=== PATIENT | male | born 1960 | race Caucasian/White ===

== ENCOUNTER 2017-07-25 22:37 | Emergency (ER) | payer OTHER ==
[2017-07-25 23:28] VITALS: BP 130/66
--- NOTE | 2017-07-26 00:15 | RADIOLOGY REPORT (SQ) ---
EXAM DESCRIPTION: HAND LEFT 3 VIEWS COMPLETED DATE/TIME: 07/25/2017 11:51 pm REASON FOR STUDY: thumb crush injury COMPARISON: None. EXAM PARAMETERS: NUMBER OF VIEWS: Three views. TECHNIQUE: AP, lateral and oblique radiographic images acquired of the left hand. LIMITATIONS: None. FINDINGS: MINERALIZATION: Normal. BONES: Comminuted intra-articular fracture at the base of the right 1st proximal phalanx with up to 0 .5 cm displacement/distraction. No evidence of healing. 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 0.4 cm ossicular fragment of the ulnocarpal joint. JOINTS: No effusions. SOFT TISSUES: No soft tissue swelling. No foreign body. OTHER: No other significant finding. IMPRESSION: Comminuted fracture of the right 1st proximal phalanx. TECHNICAL DOCUMENTATION: JOB ID: [id number] [employer]- All Rights Reserved
[2017-07-26] MEDS ORDERED: ONDANSETRON 4 MG TAB.RAPDIS PO ONE (00:31)
[2017-07-26] MEDS ORDERED: OXYCODONE-ACETAMINOPHEN 5-325 MG TABLET PO ONE (00:31)
--- NOTE | 2017-07-26 00:50 | ER Document Report ---
HPI - HPI Patient complains to provider of: right thumb injury Pain Level: 3 Context: Patient is a 56-year-old male comes emergency department for chief complaint of injury to his right hand and thumb. He states that he will had a house dmitriy fall and it landed on his hand causing immediate swelling and pain. He denies any other injuries. He does not take any daily medications. He is up-to-date on his tetanus within 5 years. Past Medical History - General Information source: Patient - Social History Smoking Status: Never Smoker Frequency of alcohol use: None Drug Abuse: None Lives with: Family Family History: Reviewed & Not Pertinent Patient has suicidal ideation: No Patient has homicidal ideation: No - Medical History Medical History: Negative Renal/ Medical History: Denies: Hx Peritoneal Dialysis Past Surgical History: Reports: Hx Orthopedic Surgery - left hip replacement - Immunizations Hx Diphtheria, Pertussis, Tetanus Vaccination: Yes - 2009 Vertical Provider Document - CONSTITUTIONAL General Appearance: WD/WN, Mild Distress - Patient appears to be in some pain, holding his right hand close to his body - INFECTION CONTROL TRAVEL OUTSIDE OF THE [place] IN LAST 30 DAYS: No - HEENT HEENT: Atraumatic, Normocephalic - NECK Neck: Normal Inspection - RESPIRATORY Respiratory: Breath Sounds Normal, No Respiratory Distress O2 Sat by Pulse Oximetry: 96 - CARDIOVASCULAR Cardiovascular: Regular Rate, Regular Rhythm - GI/ABDOMEN Gastrointestinal: Abdomen Soft, Abdomen Non-Tender - BACK Back: Normal Inspection - MUSCULOSKELETAL/EXTREMETIES Musculoskeletal/Extremeties: Tender - Tenderness or swelling at the base of the right thumb, snuffbox is unremarkable, he actually can still move his thumb in normal range of motion, capillary refill and sensation intact, remaining hand, wrist, forearm exam is normal. No open wounds. - NEURO Level of Consciousness: Awake, Alert, Appropriate - DERM Integumentary: Warm, Dry, No Rash Course - Re-evaluation Re-evalutation: X-ray imaging showing comminuted fracture of the proximal first phalanx, neurovascular exam is intact, no other concerns of injury noted. Discussed with Dr. Sebastian. Patient will be placed in a thumb spica, provided with pain medication, patient referred to orthopedics, patient states that he will call tomorrow and follow-up closely. Discussed return precautions. Patient states understanding and agreement. - Vital Signs Vital signs: Temp Pulse Resp BP Pulse Ox 99.3 F 100 18 130/66 H 96 07/25/17 23:26 07/25/17 23:26 07/25/17 23:26 07/25/17 23:26 07/25/17 23:26 Procedures - Immobilization Right thumb Pre-Proc Neuro Vasc Exam: Normal Immobilizer type: Thumb spica Performed by: PCT Post-Proc Neuro Vasc Exam: Normal Alignment checked and good: Yes Discharge - Discharge Clinical Impression: Hand crush injury Qualifiers: Encounter type: initial encounter Laterality: right Qualified Code(s): S67.21XA - Crushing injury of right hand, initial encounter Thumb fracture Qualifiers: Encounter type: initial encounter Fracture type: closed Phalanx: proximal Fracture alignment: nondisplaced Laterality: right Qualified Code(s): S62.514A - Nondisplaced fracture of proximal phalanx of right thumb, initial encounter for closed fracture Condition: Stable Disposition: HOME, SELF-CARE Additional Instructions: There is a comminuted (complex) fracture in your right thumb. Please wear the splint, call on Thursday, call Dr. Escoto, see the referral, please perform this follow-up because he will likely need surgical repair for your thumb. Take the pain medication if needed, take the stool softener if you do to avoid constipation. Return to the emergency department for any concerning or worsening symptoms including severe pain or swelling. Prescriptions: Morphine Sulfate [Morphine Ir 15 Mg Tablet] 15 mg PO Q4HP PRN #15 tablet PRN Reason: Docusate Sodium [Colace 100 mg Capsule] 100 mg PO ASDIR PRN #30 capsule PRN Reason: Referrals: DUNG ESCOTO DO [ACTIVE STAFF] - 07/27/17
== END 2017-07-26 01:58 | disposition home or self-care (01) ==
LOC: ER 22:37
DX: S67.21XA Crushing injury of right hand, initial encounter (principal); S62.514A Nondisplaced fracture of proximal phalanx of right thumb, initial encounter for closed fracture; W20.8XXA Other cause of strike by thrown, projected or falling object, initial encounter
CPT/HCPCS: 99283; 73130; 29125; S0119

== ENCOUNTER 2017-07-31 10:51 | Day surgery (SDC) | payer OTHER ==
[~2017-07-31 10:51] MED LIST: KETOROLAC TROMETHAMINE 60 MG/2 ML SDV ONE; VANCOMYCIN HCL 1,000 MG in DEXTROSE 5%-WATER 250 ML IV PRN
--- NOTE | 2017-07-31 11:19 | EKG REPORT ---
SEVERITY:- NORMAL ECG - SINUS RHYTHM : Confirmed by: Lopez Waggoner 31-Jul-2017 11:19:26
[2017-07-31 11:42] LABS: HEMATOCRIT 40.8 % (37.9-51.0); HEMOGLOBIN 14.1 g/dL (13.5-17.0); HGB HCT DIFFERENCE 1.5; MEAN CORPUSCULAR HEMOGLOBIN 30.7 pg (27.0-33.4); MEAN CORPUSCULAR HGB CONC 34.4 g/dL (32.0-36.0); MEAN CORPUSCULAR VOLUME 89 fl (80-97); RED BLOOD COUNT 4.58 10^6/uL (4.35-5.55); RED CELL DISTRIBUTION WIDTH 13.4 % (11.5-14.0); WHITE BLOOD COUNT 8.8 10^3/uL (4.0-10.5)
[2017-07-31 11:48] LABS: APPEARANCE,URINE CLEAR; BILIRUBIN,URINE NEGATIVE (NEGATIVE); GLUCOSE, URINE NEGATIVE (NEGATIVE); KETONES,URINE NEGATIVE (NEGATIVE); LEUKOCYTE ESTERASE,URINE NEGATIVE (NEGATIVE); NITRITE,URINE NEGATIVE (NEGATIVE); PROTEIN,URINE NEGATIVE (NEGATIVE); URINE SPECIFIC GRAVITY 1.026; UROBILINOGEN,URINE NEGATIVE mg/dL (<2.0)
[2017-07-31 11:55] LABS: ANION GAP 14 (5-19); BLOOD UREA NITROGEN 18 mg/dL (7-20); CALCIUM 9.4 mg/dL (8.4-10.2); CARBON DIOXIDE 23 mmol/L (22-30); CHLORIDE 106 mmol/L (98-107); CREATININE RESULT 0.84 mg/dL (0.52-1.25); GLUCOSE 101 mg/dL (75-110); POTASSIUM 4.5 mmol/L (3.6-5.0); SODIUM 142.9 mmol/L (137-145)
--- NOTE | 2017-07-31 12:08 | RADIOLOGY REPORT (SQ) ---
EXAM DESCRIPTION: CHEST SINGLE VIEW COMPLETED DATE/TIME: 07/31/2017 11:19 am REASON FOR STUDY: PREOP COMPARISON: None. EXAM PARAMETERS: NUMBER OF VIEWS: One view. TECHNIQUE: Single frontal radiographic view of the chest acquired. RADIATION DOSE: NA LIMITATIONS: None. FINDINGS: LUNGS AND PLEURA: No opacities, masses or pneumothorax. No pleural effusion. MEDIASTINUM AND HILAR STRUCTURES: No masses. Contour normal. HEART AND VASCULAR STRUCTURES: Heart normal in size. Normal vasculature. BONES: No acute findings. HARDWARE: None in the chest. OTHER: No other significant finding. IMPRESSION: NO ACUTE RADIOGRAPHIC FINDING IN THE CHEST. TECHNICAL DOCUMENTATION: JOB ID: [id number] [employer]- All Rights Reserved
[2017-07-31] MEDS ORDERED: MIDAZOLAM 2 MG/2 ML INJ ONE (12:22)
[2017-07-31] MEDS ORDERED: FENTANYL CITRATE INJ/PF 100 MCG/2 ML AMPUL ONE ×2 (12:22)
[2017-07-31] MEDS ORDERED: ACETAMINOPHEN 100 ML IV ONE (12:22)
[2017-07-31] MEDS ORDERED: PROPOFOL INJ 200 MG/20 ML VIAL IV ONE (12:22)
[2017-07-31] MEDS ORDERED: BUPIVACAINE HCL 0.5 % INJ/PF 30 ML SDV ONE (12:39)
[2017-07-31] MEDS ORDERED: HYDROMORPHONE HCL INJ/PF 2 MG/ML AMPULE ONE ×2 (14:39→14:41)
[2017-07-31] MEDS ORDERED: ONDANSETRON HCL INJ/PF 4 MG/2 ML SDV IV PRN (15:05)
[2017-07-31] MEDS ORDERED: HYDROMORPHONE HCL INJ/PF 2 MG/ML AMPULE IV PRN (15:05)
[2017-07-31] MEDS ORDERED: OXYCODONE-ACETAMINOPHEN 5-325 MG TABLET PO PRN (15:05)
--- NOTE | 2017-07-31 15:11 | Operative Report ---
Operative Report DATE OF SURGERY: 07/31/17 PREOPERATIVE DIAGNOSIS: Right Comminuted Intra-articular Proximal Phalanx Fracture POSTOPERATIVE DIAGNOSIS: Same OPERATION: ORIF Right Intra-articular Proximal Phalanx Fracture SURGEON: DUNG ESCOTO ANESTHESIA: GA COMPLICATIONS: None ESTIMATED BLOOD LOSS: Minimal PROCEDURE: Indication for above procedure: 56-year-old male who sustained a crush injury to his right thumb. Patient was seen at the emergency room where x-rays demonstrated comminuted fracture. He subsequently followed up at my office at which point we discussed treatment options including conservative management versus operative intervention. Risks and benefits were explained patient verbalized understanding and consented to proceed with operative treatment. Procedure In Detail: Patient was seen and evaluated in the preoperative holding area. The RIGHT upper extremity was initialized and marked. Patient received 2g of Ancef IV for bacterial prophylaxis. Patient was taken back to the operative room where transferred to the operative table and placed under general anesthesia. Once they were adequately anesthetized a nonsterile tourniquet was placed on the upper extremity. A surgical team debriefing was performed ensuring all instrumentation was available, the surgical procedure was discussed with possible concerns reviewed. The upper extremity was prepped with chlorhexidine and alcohol and draped in a sterile fashion. A timeout was done identifying correct patient, procedure and extremity everyone in attendance agree with this and verbalized no concerns. The extremity was exsanguinated the tourniquet was inflated to 250 mmHg. Longitudinal skin incision was made centered over the proximal phalanx of the thumb. Blunt dissection was performed and a small veins were identified and coagulated with bipolar cautery. Branches of the radial nerve were identified and retracted. The EPB and EPL tendons were identified and split midline. There was carefully retracted and the underlying periosteum and capsule of the MP joint was split in line with the skin incision and carefully elevated from the bone to allow for later repair. There is significant comminution of the intra-articular surface. The joint was copiously irrigated with normal saline and any intervening hematoma removed. Under direct visualization the 3 main articular fragments were reduced without evidence of diastases or step-off and then held together with 0.035 and a 0.045 K wire. C-arm fluoroscopy was obtained which confirmed acceptable reduction. I then shows a 2.3 mm [place] mini fragmentary plate this was pinned into position C arm was obtained confirming appropriate placement of the plate. I then placed a bicortical screw perpendicular to the articular fragments which provided interfragmentary compression. I then further fixated the plate with an additional 2 screws radially and ulnarly and the T plate with locking screws. C arm fluoroscopy confirmed acceptable reduction of the articular surface I then reduced the articular fragments to the main shaft fragment this was held with a KR and C arm obtained confirming acceptable reduction. I then obtained fixation with 2 bicortical screws restoring coronal and axial alignment of the phalanx. Finally a third oblique screw was aimed towards the articular surface to add additional fixation. C-arm fluoroscopy was obtained confirming acceptable reduction of the articular surface and baptism of sagittal and coronal alignment. There was no evidence of crepitus with MP joint range of motion. The wound was then irrigated with normal saline. The periosteum and capsule was reapproximated with interrupted 4-0 Monocryl suture. The extensor mechanism was closed with interrupted 3-0 Vicryl suture. The tourniquet was then deflated and compression held. Any remaining superficial veins were coagulated with bipolar cautery until the wound was dry. Skin was closed with interrupted 4-0 nylon suture. 20 cc of 0.5% Marcaine without epinephrine was injected for postoperative pain control. Patient was placed in a thumb spica plaster splint Sponge counts, instrument counts, needle counts counts were correct. Patient was then awoken from anesthesia. Transferred from the operating room table to the operating room stretcher. There was no intraoperative complications patient tolerated procedure well stable to PACU. Postoperative plan: Patient will follow-up as scheduled in 2 weeks. Will obtain radiographs at that time. He will be fitted for a thumb spica cast at first follow-up appointment.
--- NOTE | 2017-07-31 15:12 | PDOC DISCHARGE SUMMARY ---
Discharge Summary (SDC) - Discharge Final Diagnosis: Right thumb intra-articular proximal phalanx fracture Date of Surgery: 07/31/17 Discharge Date: 07/31/17 Condition: Good Treatment or Instructions: Schedule Follow Up w/ Dr. Twan Meraz @ [facility] to be seen in 10-14 days or as scheduled [place]: [place]: [place]: Ice and elevate Keep splint clean/dry/intact. If your fingers become numb please unwrap the Mick wrap but leave the splint in place, if the sensation does not return within 30 minutes please return to the emergency department. May begin finger range of motion attempting to make full fist. Please use ibuprofen (Motrin or Advil) 600-800 mg every 8 hours as needed for pain or fever. You may also use acetaminophen (Tylenol) 1000 mg every 4-6 hours as needed for pain or fever. Please be aware that many medications contain acetaminophen, do not exceed a total of 1000 mg of acetaminophen every 6 hours. If ibuprofen and acetaminophen are not sufficient for your pain you may take the Percocet. Please be aware that the Percocet does contain Tylenol. Stool softener of choice when on pain medication. Prescriptions: Oxycodone HCl 5 mg PO Q8 #20 tablet Referrals: STEPHANIE LEI NP [Primary Care Provider] - Discharge Diet: As Tolerated Respiratory Treatments at Home: Deep Breathing/Coughing Report the Following to Your Physician Immediately: Fever over 101 Degrees, Unusual Bleeding, Redness, Swelling, Warmth
--- NOTE | 2017-07-31 16:00 | RADIOLOGY REPORT (SQ) ---
EXAM DESCRIPTION: NO CHG FLUORO COMPLETE DATE/TIME: 07/31/2017 2:59 pm REASON FOR STUDY: ORIF RT THUMB ASSISTED WITH FLUORO IN OR S62.512A DISP FX OF PROXIMAL PHALANX OF LEFT THUMB, INIT FOR FINDINGS: Please see combined report for performance of procedure and radiologic supervision and int erpretation. IMPRESSION: Please see combined report for performance of procedure and radiologic supervision and i nterpretation.
--- NOTE | 2017-07-31 16:00 | RADIOLOGY REPORT (SQ) ---
EXAM DESCRIPTION: FINGER RIGHT COMPLETED DATE/TIME: 07/31/2017 2:59 pm REASON FOR STUDY: ORIF RT THUMB ASSISTED WITH FLUORO IN OR S62.512A DISP FX OF PROXIMAL PHALANX OF LEFT THUMB, INIT FOR COMPARISON: None. FLUOROSCOPY TIME: 37 seconds 4 images saved to PACS. TECHNIQUE: Intra-operative images acquired during surgical procedure to evaluate progress. NUMBER OF IMAGES: For imaged LIMITATIONS: None. FINDINGS: Fluoroscopic images were obtained during internal fixation of the proximal phalanx of the left 1st digit. Orthopedic hardware is identified. Please refer to the surgeon's operative report f or additional information IMPRESSION: IMAGE(S) OBTAINED DURING PROCEDURE. COMMENT: Quality ID [id number]: Final reports for procedures using fluoroscopy that document radiation exp osure indices, or exposure time and number of fluorographic images (if radiation exposure indices are not available) Please consult full operative report of the attending physician for description of the procedure. TECHNICAL DOCUMENTATION: JOB ID: [id number] [employer]- All Rights Reserved
[2017-07-31 16:56] VITALS: BP 107/76
== END 2017-07-31 16:55 | disposition home or self-care (01) ==
LOC: OROUT 10:51
PROVIDERS: ATTEND Orthopaedic Surgery
PROC: 0PSR04Z Reposition Right Thumb Phalanx with Internal Fixation Device, Open Approach (ICD-10-PCS; principal; 2017-07-31 13:00)
DX: S62.512A Displaced fracture of proximal phalanx of left thumb, initial encounter for closed fracture (principal); W22.8XXA Striking against or struck by other objects, initial encounter; M79.644 Pain in right finger(s); F17.210 Nicotine dependence, cigarettes, uncomplicated; Z86.14 Personal history of Methicillin resistant Staphylococcus aureus infection
CPT/HCPCS: 36415; 85027; 80048; 81001; 71010; 73140; 93005; 93010; 26735; C1769; J2250; J1885; J3010; J1170; J7060; J2704; J3370; J0131; 01830

== ENCOUNTER 2018-07-18 18:38 | Emergency (ER) | payer OTHER ==
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
[2018-07-18 19:52] LABS: ABSOLUTE BASOPHILS # (AUTO) 0.1 10^3/uL (0.0-0.2); ABSOLUTE EOSINOPHILS # (AUTO) 0.2 10^3/uL (0.0-0.6); ABSOLUTE MONOCYTES (AUTO) 0.6 10^3/uL (0.1-1.4); ABSOLUTE NEUT (AUTO) 6.5 10^3/uL (1.7-8.2); BASOPHILS % (AUTO) 0.8 % (0-2); EOSINOPHILS % (AUTO) 1.6 % (0-6); HEMATOCRIT 42.8 % (37.9-51.0); HEMOGLOBIN 14.9 g/dL (13.5-17.0); MEAN CORPUSCULAR HEMOGLOBIN 30.3 pg (27.0-33.4); MEAN CORPUSCULAR HGB CONC 34.7 g/dL (32.0-36.0); MEAN CORPUSCULAR VOLUME 87 fl (80-97); MONOCYTES % (AUTO) 5.8 % (3-13); PLATELET COUNT 425 10^3/uL (150-450); RED BLOOD COUNT 4.91 10^6/uL (4.35-5.55); RED CELL DISTRIBUTION WIDTH 13.4 % (11.5-14.0); SEGMENTED NEUTROPHILS % (AUTO) 62.8 % (42-78); TOTAL CELLS COUNTED % (AUTO) 100 %; WHITE BLOOD COUNT 10.3 10^3/uL (4.0-10.5)
--- NOTE | 2018-07-18 19:57 | RADIOLOGY REPORT (SQ) ---
EXAM DESCRIPTION: KNEE LEFT 4 VIEW COMPLETED DATE/TIME: 07/18/2018 7:47 pm REASON FOR STUDY: severe pain in left knee sudden COMPARISON: None. NUMBER OF VIEWS: Four views. TECHNIQUE: AP, lateral, and both oblique radiographic images acquired of the left knee. LIMITATIONS: None. FINDINGS: MINERALIZATION: Normal. BONES: No acute fracture or dislocation. No worrisome bone lesions. JOINT: No effusion. SOFT TISSUES: No soft tissue swelling. No radio-opaque foreign body. IMPRESSION: No radiographic evidence of acute injury at the left knee. TECHNICAL DOCUMENTATION: JOB ID: [id number] [employer]- All Rights Reserved Reading location - IP/workstation name: [email or web address]
[2018-07-18 20:04] LABS: ANION GAP 16 (5-19); BLOOD UREA NITROGEN 24 mg/dL (7-20); CALCIUM 10.2 mg/dL (8.4-10.2); CARBON DIOXIDE 23 mmol/L (22-30); CHLORIDE 103 mmol/L (98-107); GLUCOSE 100 mg/dL (75-110); POTASSIUM 3.8 mmol/L (3.6-5.0); SODIUM 142.4 mmol/L (137-145)
[2018-07-18] MEDS ORDERED: MORPHINE SULFATE 10 MG/ML INJ IV ONE (20:26)
--- NOTE | 2018-07-18 21:22 | RADIOLOGY REPORT (SQ) ---
CT LOWER EXTREMITY ANGIOGRAPHY WITH IV CONTRAST HISTORY: Sudden sharp and shooting left knee pain. COMPARISON: None. TECHNIQUE: CT angiogram of the left lower extremity. Sagittal and coronal MIPS reconstructions were obtained postprocessing. This exam was performed according to our departmental dose-optimization program, which includes automated exposure control, adjustment of the mA and/or kV according to patient size and/or use of iterative reconstruction technique. FINDINGS: Atherosclerotic calcifications and fibrofatty intraluminal plaque within the distal aorta, common left iliac, and left external iliac arteries. The common femoral, deep femoral, superficial femoral, popliteal, anterior tibial, posterior tibial, and peroneal arteries are patent without evidence of occlusion. Normal three-vessel runoff to the foot. No acute fracture or malalignment. Status post total left hip arthroplasty without periprosthetic fracture or hardware loosening. Surrounding muscles and tendons are intact. Visualized intrapelvic structures are unremarkable. IMPRESSION: 1. No evidence of occlusion or pseudoaneurysm of the left lower extremity vascular surgery. 2. No acute fracture or malalignment. 3. Status post total left hip arthroplasty with hardware intact.
[2018-07-18] MEDS ORDERED: HYDROCODONE/ACETAMINOPHEN 5-325 MG (6 TAB/ER DISP) PO PRN (21:36)
[2018-07-19 03:02] VITALS: BP 120/72
== END 2018-07-18 22:20 | disposition home or self-care (01) ==
LOC: ER 18:38
DX: M25.562 Pain in left knee (principal); Z96.642 Presence of left artificial hip joint; Z98.890 Other specified postprocedural states; F17.210 Nicotine dependence, cigarettes, uncomplicated; Z71.6 Tobacco abuse counseling
CPT/HCPCS: 99406; 99284; 96374; 36415; 85025; 80048; 73564; 73706; L1830; J2270

== ENCOUNTER 2019-01-12 08:34 | Day surgery (SDC) | payer OTHER ==
[2019-01-05 09:42] LABS: APPEARANCE,URINE CLEAR; BILIRUBIN,URINE NEGATIVE (NEGATIVE); COLOR,URINE STRAW; GLUCOSE, URINE NEGATIVE (NEGATIVE); KETONES,URINE NEGATIVE (NEGATIVE); LEUKOCYTE ESTERASE,URINE NEGATIVE (NEGATIVE); NITRITE,URINE NEGATIVE (NEGATIVE); PROTEIN,URINE NEGATIVE (NEGATIVE); URINE SPECIFIC GRAVITY 1.005; UROBILINOGEN,URINE NEGATIVE mg/dL (<2.0)
[2019-01-05 09:52] LABS: ABSOLUTE BASOPHILS # (AUTO) 0.1 10^3/uL (0.0-0.2); ABSOLUTE EOSINOPHILS # (AUTO) 0.4 10^3/uL (0.0-0.6); ABSOLUTE MONOCYTES (AUTO) 0.6 10^3/uL (0.1-1.4); ABSOLUTE NEUT (AUTO) 4.4 10^3/uL (1.7-8.2); BASOPHILS % (AUTO) 0.7 % (0-2); EOSINOPHILS % (AUTO) 5.8 % (0-6); HEMATOCRIT 42.8 % (37.9-51.0); HEMOGLOBIN 14.6 g/dL (13.5-17.0); LYMPHOCYTES % (AUTO) 26.9 % (13-45); MEAN CORPUSCULAR HEMOGLOBIN 30.6 pg (27.0-33.4); MEAN CORPUSCULAR HGB CONC 34.2 g/dL (32.0-36.0); MEAN CORPUSCULAR VOLUME 89 fl (80-97); MONOCYTES % (AUTO) 7.9 % (3-13); PLATELET COUNT 356 10^3/uL (150-450); RED BLOOD COUNT 4.78 10^6/uL (4.35-5.55); RED CELL DISTRIBUTION WIDTH 13.4 % (11.5-14.0); SEGMENTED NEUTROPHILS % (AUTO) 58.7 % (42-78); TOTAL CELLS COUNTED % (AUTO) 100 %; WHITE BLOOD COUNT 7.5 10^3/uL (4.0-10.5)
--- NOTE | 2019-01-05 10:02 | RADIOLOGY REPORT (SQ) ---
EXAM DESCRIPTION: CHEST PA/LATERAL COMPLETED DATE/TIME: 01/05/2019 9:37 am REASON FOR STUDY: PRE-OP COMPARISON: None. EXAM PARAMETERS: NUMBER OF VIEWS: two views TECHNIQUE: Digital Frontal and Lateral radiographic views of the chest acquired. RADIATION DOSE: NA LIMITATIONS: none FINDINGS: LUNGS AND PLEURA: No opacities, masses or pneumothorax. No pleural effusion. MEDIASTINUM AND HILAR STRUCTURES: No masses or contour abnormalities. HEART AND VASCULAR STRUCTURES: Heart normal size. No evidence for failure. BONES: No acute findings. HARDWARE: None in the chest. OTHER: No other significant finding. IMPRESSION: NO SIGNIFICANT RADIOGRAPHIC FINDING IN THE CHEST. TECHNICAL DOCUMENTATION: JOB ID: [id number] [employer]- All Rights Reserved Reading location - IP/workstation name: [email or web address]
[2019-01-05 10:12] LABS: ANION GAP 13 (5-19); BLOOD UREA NITROGEN 22 mg/dL (7-20); CALCIUM 9.9 mg/dL (8.4-10.2); CARBON DIOXIDE 28 mmol/L (22-30); CHLORIDE 101 mmol/L (98-107); GLUCOSE 109 mg/dL (75-110); POTASSIUM 4.6 mmol/L (3.6-5.0); SODIUM 141.9 mmol/L (137-145)
--- NOTE | 2019-01-05 14:31 | EKG REPORT ---
SEVERITY:- NORMAL ECG - SINUS RHYTHM : Confirmed by: Vinnie Power MD 05-Jan-2019 14:30:40
[~2019-01-12 08:34] MED LIST changes: +CEFAZOLIN 2 GM/D5W RTU 2 GM/50 ML RTUPB IV ONE; +CEFAZOLIN 2 GM/D5W RTU 2 GM/50 ML RTUPB IV PRN; -KETOROLAC TROMETHAMINE 60 MG/2 ML SDV ONE; +LACTATED RINGERS 1000 ML IV PRN; +LIDOCAINE 0.5% INJ-PF (5 MG/ML) 50 ML SDV SUBCUT PRN; -VANCOMYCIN HCL 1,000 MG in DEXTROSE 5%-WATER 250 ML IV PRN
[2019-01-12] MEDS ORDERED: FENTANYL CITRATE INJ/PF 100 MCG/2 ML AMPUL ONE (10:39)
[2019-01-12] MEDS ORDERED: PROPOFOL INJ 200 MG/20 ML VIAL IV ONE (10:39)
[2019-01-12] MEDS ORDERED: MIDAZOLAM 2 MG/2 ML INJ ONE (10:39)
[2019-01-12] MEDS ORDERED: LIDOCAINE 1%/EPINEPHRINE INJ 20 ML VIAL ONE (10:48)
[2019-01-12] MEDS ORDERED: BUPIVACAINE HCL 0.5 % INJ/PF 30 ML SDV ONE (10:48)
[2019-01-12] MEDS ORDERED: PROMETHAZINE HCL INJ 25 MG/1 ML VIAL IV PRN ×2 (11:16)
[2019-01-12] MEDS ORDERED: MEPERIDINE HCL/PF INJ 25 MG/1 ML DISP.SYRIN IV PRN (11:16)
[2019-01-12] MEDS ORDERED: DIPHENHYDRAMINE HCL 50 MG/ML VIAL IV PRN (11:16)
[2019-01-12] MEDS ORDERED: FENTANYL CITRATE INJ/PF 100 MCG/2 ML AMPUL IV PRN ×3 (11:16)
[2019-01-12] MEDS ORDERED: MORPHINE SULFATE 10 MG/ML INJ IV PRN (11:16)
[2019-01-12] MEDS ORDERED: OXYCODONE-ACETAMINOPHEN 5-325 MG TABLET PO PRN ×2 (11:16)
[2019-01-12] MEDS ORDERED: ONDANSETRON HCL INJ/PF 4 MG/2 ML SDV IV PRN (11:16)
--- NOTE | 2019-01-12 11:24 | Discharge Summary ---
Discharge Summary (SDC) - Discharge Final Diagnosis: Left medial meniscal tear Date of Surgery: 01/12/19 Discharge Date: 01/12/19 Condition: Good Treatment or Instructions: You can ambulate as tolerated. On Thursday the compressive wrap can be removed. The underlying OpSite can stay in place until you return to the office in 2 weeks. Can shower once the compressive wrap is removed. Prescriptions: Oxycodone HCl/Acetaminophen [Percocet 5-325 mg Tablet] 1 tab PO Q6 PRN #40 tab PRN Reason: Referrals: CONNER DAMIAN DO [Primary Care Provider] - Discharge Diet: As Tolerated, Regular Respiratory Treatments at Home: Deep Breathing/Coughing Discharge Activity: Balance Activity w/Rest, No tub bath Home Care Assistance: None Needed Report the Following to Your Physician Immediately: Shortness of Breath, Fever over 101 Degrees, Drainage-Foul Smelling
--- NOTE | 2019-01-12 11:26 | Operative Report ---
Operative Report DATE OF SURGERY: 01/12/19 PREOPERATIVE DIAGNOSIS: Left medial meniscal tear POSTOPERATIVE DIAGNOSIS: Left medial meniscal tear. 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 Intact ACL. Lateral meniscal tear. Grade 1-2 chondral malacia lateral tibial plateau. 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 The limb is insufflated with accommodation Marcaine, Xylocaine, and epinephrine through medial lateral infrapatellar portals. Infrapatellar portals are created and used for the introduction of arthroscope and debridements mentation. Joint is examined in systematic fashion findings as above. Using combination of a basket Knight, mechanical shaver, and electric frequency ablation probe a partial medial meniscectomy was performed from proximal 8:00 to 12:00 at the base of the dial. Likewise a partial lateral meniscectomy performed from approximately 5:00 to 12:00 on the face of the dial. Using mechanical shaver and abrasion chondroplasty of the articular surface the patella was performed. The instrumentation was removed. Portals reapproximated interrupted nylon. A sterile compressive dressing was applied. The patient's return to the PACU in satisfactory vision.
[2019-01-12] MEDS ORDERED: OXYCODONE HCL IR 5 MG TABLET PO PRN (11:47)
[2019-01-12] MEDS ORDERED: ONDANSETRON ODT 4 MG TAB (6 TAB/ER DISP) SL PRN (11:48)
[2019-01-12] MEDS ORDERED: OXYCODONE HCL IR 5 MG TABLET ONE (12:18)
[2019-01-12] MEDS ORDERED: ONDANSETRON 4 MG TAB.RAPDIS SL PRN (12:35)
[2019-01-12 15:26] VITALS: BP 117/72
== END 2019-01-12 13:10 | disposition home or self-care (01) ==
LOC: OROUT 08:34
PROVIDERS: ATTEND Orthopaedic Surgery
DX: M23.301 Other meniscus derangements, unspecified lateral meniscus, left knee (principal); M23.304 Other meniscus derangements, unspecified medial meniscus, left knee; M22.42 Chondromalacia patellae, left knee; M25.562 Pain in left knee; F17.210 Nicotine dependence, cigarettes, uncomplicated; Z01.811 Encounter for preprocedural respiratory examination; Z01.810 Encounter for preprocedural cardiovascular examination
CPT/HCPCS: 29880; 93005; 36415; 85025; 80048; 81001; 71046; 93010; J2250; J3490 ×2; J3010; J2704; J0690